=== PATIENT | male | born 1940 | race Caucasian/White ===

== ENCOUNTER 2018-08-30 15:43 | Outpatient (CLI) | payer MEDICARE ==
--- NOTE | 2018-08-30 17:45 | RAD ---
THREE VIEW RIGHT SHOULDER: 08/30/18 CLINICAL HISTORY: Pain. 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 IMPRESSION: No acute osseous abnormality of the right shoulder. POS: [facility]
== END 2018-08-30 15:44 | disposition home or self-care (01) ==
LOC: NAV RAD 15:43
PROVIDERS: ATTEND Nurse Practitioner Adult Health
DX: M25.511 Pain in right shoulder (principal)

== ENCOUNTER 2019-12-14 14:27 | Outpatient (CLI) | payer MEDICARE ==
--- NOTE | 2019-12-14 15:16 | RAD ---
PA AND LATERAL VIEWS CHEST: HISTORY: Cough, wheezing, dyspnea. FINDINGS: The heart size is normal. The lungs are expanded without focal areas of consolidation, pneumothorace s, or pleural effusions. There are degenerative changes in the spine. IMPRESSION: No radiographic evidence of acute cardiopulmonary process. POS: [facility]
== END 2019-12-14 14:28 | disposition home or self-care (01) ==
LOC: NAV RAD 14:27
PROVIDERS: ATTEND Nurse Practitioner Adult Health
DX: R05 Cough (principal); R06.09 Other forms of dyspnea; R06.2 Wheezing
CPT/HCPCS: 71046

== ENCOUNTER 2021-05-03 21:25 | Emergency (ER) | payer MEDICARE ==
[2021-05-03 22:12] LABS: #Basophils 0.1 thou/uL (0.0-0.2); #Eosinphils 0.3 thou/uL (0.0-0.7); #Lymphocytes 1.9 thou/uL (1.20-3.40); #Monocytes 0.7 thou/uL (0.11-0.59); #Neutrophils 4.2 thou/uL (1.40-6.50); %Basophils 1.1 % (0.0-1.0); %Eosinophils 3.9 % (0.0-10.0); %Lymphocytes 27.1 % (21.0-51.0); %Monocytes 9.2 % (0.0-10.0); %Neutrophils 58.7 % (42.0-75.0); Hemoglobin 13.3 g/dL (14.0-18.0); Mean Corpuscular HGB CONC 32.1 g/dL (32.0-36.0); Mean Corpuscular Hemoglobin 28.5 pg (27.0-31.0); Mean Corpuscular Volume 88.8 fL (78.0-98.0); Mean Platelet Volume 6.8 fL (7.4-10.4); Platelet Count 238 thou/uL (130-400); RBC Distribution Width 12.1 % (11.5-14.5); Red Blood Cell (RBC) Count 4.65 mill/uL (4.70-6.10); White Blood Cell (WBC) Count 7.2 thou/uL (4.8-10.8)
[2021-05-03 22:29] LABS: ALT (SGPT) 21 U/L (8-55); AST (SGOT) 24 U/L (5-34); Albumin 3.9 g/dL (3.4-4.8); Alkaline Phosphatase 51 U/L (40-110); Anion Gap 12 mmol/L (10-20); BUN (Urea Nitrogen) 17 mg/dL (8.4-25.7); Bilirubin, Total 0.4 mg/dL (0.2-1.2); Calc. Creatinine Clearance 0 mL/min (70-130); Carbon Dioxide 23 mmol/L (23-31); Chloride 106 mmol/L (98-107); Globulin 2.9 g/dL (2.4-3.5); Glucose 159 mg/dL (83-110); Lipase 57 U/L (8-78); Potassium 3.9 mmol/L (3.5-5.1); Protein, Total 6.8 g/dL (5.8-8.1); Sodium 137 mmol/L (136-145)
[2021-05-03 22:38] LABS: Bilirubin Negative (Negative); Blood, Urine Moderate (Negative); Clarity Clear (Clear); Glucose, Urine (Dipstick) Negative (Negative); Ketone, Urine Negative (Negative); Leukocyte Negative (Negative); Nitrite Negative (Negative); Protein, Urine (Dipstick) Negative (Neg-Trace); Specific Gravity, Urine 1.025 (1.005-1.030); Urobilinogen 0.2 mg/dL (Less than 2); pH, Urine 5.5 (5.0-9.0)
[2021-05-03 22:42] LABS: Bacteria/HPF Rare-Few HPF (None Seen); RBC/HPF 21-50 HPF (0-3); Squamous Epithelial None Seen HPF (0-3); WBC/HPF 0-3 HPF (0-3)
== END 2021-05-03 23:55 | disposition home or self-care (01) ==
LOC: NAV ERS 21:25
DX: N20.0 Calculus of kidney (principal)
CPT/HCPCS: 74176; 80053; 81003; 81015; 83690; 85025

== ENCOUNTER 2021-11-03 11:49 | Emergency (ER) | payer MEDICARE ==
[2021-11-03 12:35] LABS: #Basophils 0.1 thou/uL (0.0-0.2); #Eosinphils 0.3 thou/uL (0.0-0.7); #Lymphocytes 2.1 thou/uL (1.20-3.40); #Monocytes 0.8 thou/uL (0.11-0.59); #Neutrophils 4.1 thou/uL (1.40-6.50); %Basophils 1.5 % (0.0-1.0); %Eosinophils 3.6 % (0.0-10.0); %Lymphocytes 27.9 % (21.0-51.0); %Monocytes 11.2 % (0.0-10.0); %Neutrophils 55.8 % (42.0-75.0); Hemoglobin 14.6 g/dL (14.0-18.0); Mean Corpuscular HGB CONC 32.7 g/dL (32.0-36.0); Mean Corpuscular Hemoglobin 28.9 pg (27.0-31.0); Mean Corpuscular Volume 88.4 fL (78.0-98.0); Mean Platelet Volume 6.7 fL (7.4-10.4); Platelet Count 303 thou/uL (130-400); RBC Distribution Width 11.9 % (11.5-14.5); Red Blood Cell (RBC) Count 5.04 mill/uL (4.70-6.10); White Blood Cell (WBC) Count 7.4 thou/uL (4.8-10.8)
[2021-11-03 12:49] LABS: ALT (SGPT) 19 U/L (8-55); AST (SGOT) 29 U/L (5-34); Albumin 4.2 g/dL (3.4-4.8); Alkaline Phosphatase 56 U/L (40-110); Anion Gap 14 mmol/L (10-20); BUN (Urea Nitrogen) 15 mg/dL (8.4-25.7); Bilirubin, Total 0.8 mg/dL (0.2-1.2); Calc. Creatinine Clearance 0 mL/min (70-130); Calcium 9.7 mg/dL (7.8-10.44); Carbon Dioxide 24 mmol/L (23-31); Chloride 102 mmol/L (98-107); Globulin 3.6 g/dL (2.4-3.5); Glucose 98 mg/dL (83-110); Potassium 4.4 mmol/L (3.5-5.1); Protein, Total 7.8 g/dL (5.8-8.1); Sodium 136 mmol/L (136-145)
[2021-11-03 13:48] LABS: Bilirubin Negative (Negative); Blood, Urine Negative (Negative); Clarity Clear (Clear); Glucose, Urine (Dipstick) Negative (Negative); Ketone, Urine Negative (Negative); Leukocyte Negative (Negative); Nitrite Negative (Negative); Protein, Urine (Dipstick) Negative (Neg-Trace); Urobilinogen 0.2 mg/dL (Less than 2)
[2021-11-03 13:50] LABS: Specific Gravity, Urine 1.021 (1.005-1.030)
[2021-11-03] MEDS ORDERED: Aspirin Chewable 81 MG TAB ONE (14:48)
== END 2021-11-04 11:35 | disposition short-term general hospital (02) ==
LOC: NAV ERS 11:49
DX: R41.0 Disorientation, unspecified (principal); F07.81 Postconcussional syndrome
CPT/HCPCS: 70450; 80053; 81003; 84484; 85025; 93005; 94760

== ENCOUNTER 2022-04-09 10:07 | Outpatient (CLI) | payer MEDICARE | END 2022-04-09 10:08 | disposition home or self-care (01) | LOC: NAV LAB 10:07 → NAV RAD 10:08 | PROVIDERS: ATTEND Family Medicine | DX: R05.9 Cough, unspecified (principal); M19.011 Primary osteoarthritis, right shoulder; M19.012 Primary osteoarthritis, left shoulder; M25.78 Osteophyte, vertebrae | CPT/HCPCS: 71046 ==

== ENCOUNTER 2024-02-08 15:43 | Emergency (ER) | payer MEDICARE, OTHER ==
[2024-02-08 16:05] LABS: #Basophils 0.1 thou/uL (0.0-0.2); #Eosinphils 0.3 thou/uL (0.0-0.7); #Lymphocytes 2.7 thou/uL (1.20-3.40); #Monocytes 0.9 thou/uL (0.11-0.59); #Neutrophils 4.4 thou/uL (1.40-6.50); %Basophils 1.1 % (0.0-1.0); %Eosinophils 3.4 % (0.0-10.0); %Lymphocytes 31.9 % (21.0-51.0); %Monocytes 10.5 % (0.0-10.0); %Neutrophils 53.2 % (42.0-75.0); Hematocrit 41.4 % (42.0-52.0); Mean Corpuscular HGB CONC 31.3 g/dL (32.0-36.0); Mean Corpuscular Hemoglobin 27.3 pg (27.0-31.0); Mean Corpuscular Volume 87.1 fl (78.0-98.0); Mean Platelet Volume 7.4 fL (7.4-10.4); Platelet Count 156 10x3/uL (130-400); RBC Distribution Width 12.8 % (11.5-14.5); Red Blood Cell (RBC) Count 4.75 mill/uL (4.70-6.10); White Blood Cell (WBC) Count 8.3 10x3/uL (4.8-10.8)
[2024-02-08] MEDS ORDERED: Boostrix 0.5 ML (Tdap) VIAL (>/=7 yrs of age) ONE (16:06)
[2024-02-08] MEDS ORDERED: LevoFLOXacin D5W 500 mg (100 mL) BAG ONE (16:08)
[2024-02-08] MEDS ORDERED: Vancomycin 1 GM VIAL ONE (16:08)
[2024-02-08 16:10] LABS: Prothrombin Time 12.9 sec (12.0-14.7)
[2024-02-08 16:11] LABS: PTT 26.6 sec (22.9-36.1)
[2024-02-08] MEDS ORDERED: Sodium Chloride 0.9% 1,000 ML ONE (16:18)
[2024-02-08] MEDS ORDERED: Promethazine HCl 25 MG/ML VIAL ONE (16:19)
[2024-02-08] MEDS ORDERED: fentaNYL 50 mcg/mL 1 mL Vial ONE (16:19)
[2024-02-08 16:20] LABS: ALT (SGPT) 28 U/L (8-55); AST (SGOT) 31 U/L (5-34); Albumin 4.1 g/dL (3.4-4.8); Alkaline Phosphatase 49 U/L (40-110); Anion Gap 16 mmol/L (10-20); BUN (Urea Nitrogen) 16 mg/dL (8.4-25.7); Bilirubin, Total 0.9 mg/dL (0.2-1.2); Calc. Creatinine Clearance 0 mL/min (70-130); Calcium 9.7 mg/dL (7.8-10.44); Carbon Dioxide 23 mmol/L (23-31); Chloride 101 mmol/L (98-107); Estimated GFR 85; Globulin 2.6 g/dL (2.4-3.5); Glucose 123 mg/dL (83-110); Potassium 3.9 mmol/L (3.5-5.1); Protein, Total 6.7 g/dL (5.8-8.1); Sodium 136 mmol/L (136-145)
[2024-02-08] MEDS ORDERED: Tranexamic Acid 1,000 MG/10 ML VIAL ONE (16:40)
[2024-02-08] MEDS ORDERED: Sodium Chloride 0.9% 100 ML ONE (16:42)
== END 2024-02-08 16:55 | disposition short-term general hospital (02) ==
LOC: NAV ERS 15:43
DX: S02.32XB Fracture of orbital floor, left side, initial encounter for open fracture (principal); Z23 Encounter for immunization; W22.8XXA Striking against or struck by other objects, initial encounter
CPT/HCPCS: 70486; 80053; 85025; 85610; 85730; 90471; 90715; 96365; 96374; 96375; J1956; J2550; J3010; J3370; J7050